=== PATIENT | female | born 1990 | race Caucasian/White ===

== ENCOUNTER 2019-12-07 13:47 | Inpatient (IN) ==
[2019-12-07 16:50] LABS: UR COCAINE QUAL PRESUMPTIVE POSITIVE (NONE DETECT); UR OPIATES QUAL PRESUMPTIVE POSITIVE (NONE DETECT); UR OXYCODONE QUAL PRESUMPTIVE POSITIVE (NONE DETECT)
[2019-12-07 16:51] LABS: UR AMPHETAMINES QUAL NONE DETECTED (NONE DETECT); UR BARBITUATES QUAL NONE DETECTED (NONE DETECT); UR BENZODIAZEPIN QUAL NONE DETECTED (NONE DETECT); UR CANNABINOIDS QUAL NONE DETECTED (NONE DETECT); UR METHADONE QUAL NONE DETECTED (NONE DETECT); UR METHAMPHETAMINE QUAL NONE DETECTED (NONE DETECT); UR PCP QUAL NONE DETECTED (NONE DETECT); UR PROPOXYPHENE QUAL NONE DETECTED (NONE DETECT); UR TCA QUAL NONE DETECTED (NONE DETECT)
[2019-12-07] MEDS ORDERED: SENOKOT PO PRN (18:00)
[2019-12-07] MEDS ORDERED: DULCOLAX PR PRN (18:00)
[2019-12-07] MEDS ORDERED: NICODERM PATCH TD PRN (18:00)
[2019-12-07] MEDS ORDERED: ATARAX PO PRN (18:00)
[2019-12-07] MEDS ORDERED: TUBERSOL ID ONE (18:00)
[2019-12-07] MEDS ORDERED: MAALOX PLUS LIQUID PO PRN (18:00)
[2019-12-07] MEDS ORDERED: LIBRIUM PO PRN (18:00)
[2019-12-07] MEDS ORDERED: D5W 1,000 ML IV PRN (18:00)
[2019-12-07] MEDS ORDERED: ZOFRAN IV PRN (18:00)
[2019-12-07] MEDS ORDERED: SINEMET 25/100 PO PRN (18:00)
[2019-12-07] MEDS ORDERED: IMODIUM PO PRN (18:00)
[2019-12-07] MEDS ORDERED: BENTYL PO PRN (18:00)
[2019-12-07] MEDS ORDERED: TYLENOL PO PRN (18:00)
[2019-12-07] MEDS ORDERED: PHENOBARBITAL IV PRN (18:00)
[2019-12-07] MEDS: ZOFRAN ODT PO PRN (18:27)
[2019-12-07] MEDS: LIBRIUM PO SCH ×2 (18:28→22:58)
[2019-12-07] MEDS ORDERED: PNEUMOVAX 23 IM ONE (18:30)
[2019-12-07 18:40] LABS: HEMATOCRIT 35.9 % (37.0-47.0); HEMOGLOBIN 11.7 g/dL (12.0-16.0); MCH 28.2 PG (27-31); MCHC 32.6 g/dL (33-37); MCV 86.5 FL (81-99); MPV 8.8 FL (7.4-10.4); RBC 4.15 XMIL (4.2-5.4); RDW 14.3 % (11.5-14.5); WBC 6.81 X1000 (4.8-10.8)
[2019-12-07 18:56] LABS: INR 1.1; PROTIME 14.8 Seconds (11.0-16.0)
[2019-12-07] MEDS ORDERED: FLU VACCINE IM ONE (19:06)
[2019-12-07 19:09] LABS: AMYLASE 68 U/L (20-200); LIPASE 35 U/L (13-60)
[2019-12-07 19:12] LABS: AGAP 13; ALBUMIN 4.2 g/dL (3.5-5.0); ALKALINE PHOSPHATASE 57 U/L (32-104); BUN 7 mg/dL (8-22); CALCIUM 9.3 mg/dL (8.8-10.2); CHLORIDE 100 mmol/L (98-107); COSMO 279; CREATININE 0.4 mg/dL (0.5-0.9); ESTIMATED GFR > 60; GLUCOSE 125 mg/dL (70-104); GOT 15 U/L (10-30); GPT 11 U/L (10-36); POTASSIUM 3.2 mmol/L (3.5-5.1); SODIUM 140 mmol/L (136-145); TCO2 27 mmol/L (25-35); TOTAL PROTEIN 6.5 g/dL (6.3-8.3)
[2019-12-07] MEDS: SUBOXONE 8 MG/2 MG FILM SL SCH (22:39)
[2019-12-07] MEDS: ROBAXIN PO PRN (22:57)
[2019-12-07] MEDS: SEROQUEL PO PRN (22:57)
[2019-12-08] MEDS: LIBRIUM PO SCH ×4 (01:27→18:14)
[2019-12-08] MEDS: PROTONIX PO SCH (08:45)
[2019-12-08] MEDS: FOLIC ACID PO SCH ×2 (08:46→11:44)
[2019-12-08] MEDS: SUBOXONE 8 MG/2 MG FILM SL SCH ×3 (08:46→23:08)
[2019-12-08] MEDS: THERA M PLUS PO SCH ×2 (08:47→11:45)
[2019-12-08] MEDS: VITAMIN B-1 PO SCH ×2 (08:47→11:44)
[2019-12-08] MEDS ORDERED: M.V.I.-12 10 ML, FOLIC ACID 1 MG, MAGNESIUM SULFATE 1 GM, THIAMINE 100 MG in NS 1,000 ML IV ONE (09:00)
[2019-12-08] MEDS: ZOFRAN ODT PO PRN (11:45)
--- NOTE | 2019-12-08 23:35 | PROGRESS NOTE ---
DATE: 12/08/2019 SUBJECTIVE: Patient currently is sleeping, easily awakened. PHYSICAL EXAMINATION: Vital Signs: Reviewed. She is afebrile. Blood pressure is stable. Cardiovascular: Regular rate. Chest: Clear. Abdomen: Soft. ASSESSMENT: 1. Opiate abuse withdrawal and stabilization. PLAN: We are going to continue the patient in the hospital. She does have a positive beta HCG, although her qualitative is very low, as to be expected. Given that she has recently had a D and C, she certainly is not . We are going to continue to follow. Further orders as needed. cc: Ozzy Nguyen MD MTDD
[2019-12-09] MEDS: LIBRIUM PO SCH ×3 (02:29→18:48)
[2019-12-09] MEDS: PROTONIX PO SCH (06:04)
[2019-12-09] MEDS ORDERED: SOLU-MEDROL IV ONE (08:42)
[2019-12-09] MEDS ORDERED: KLOR-CON PO ONE (08:42)
[2019-12-09] MEDS: VITAMIN B-1 PO SCH (08:44)
[2019-12-09] MEDS: FOLIC ACID PO SCH (08:44)
[2019-12-09] MEDS: THERA M PLUS PO SCH (08:44)
[2019-12-09] MEDS ORDERED: SUBOXONE 8 MG/2 MG FILM SL SCH (09:00)
[2019-12-09] MEDS: MOTRIN PO PRN ×2 (11:05→18:48)
[2019-12-09] MEDS: ROBAXIN PO PRN ×2 (11:05→18:48)
[2019-12-09] MEDS: ZOFRAN ODT PO PRN (18:00)
--- NOTE | 2019-12-09 21:31 | PROGRESS NOTE ---
DATE: 12/07/2019 SUBJECTIVE: She has no new complaints, states she is still having severe knee pain from her surgery in July. OBJECTIVE: Vital Signs: Reviewed. General: She is awake and alert. She is in no distress. HEENT: Normocephalic. Neck: Supple. Cardiovascular: Regular rate. Chest: Clear. Abdomen: Soft. ASSESSMENT: 1. Nausea and vomiting. 2. Abdominal pain. 3. Left knee pain. 4. Polysubstance use and abuse. PLAN: We are going to continue to wean Librium, wean Suboxone. Continue to attempt counseling. Further orders as needed cc: Ozzy Nguyen MD MTDD
[2019-12-10] MEDS: SEROQUEL PO PRN ×2 (00:29→23:58)
[2019-12-10] MEDS: ROBAXIN PO PRN (00:29)
[2019-12-10] MEDS: DESYREL PO PRN ×2 (00:29→23:58)
[2019-12-10] MEDS: LIBRIUM PO SCH ×4 (02:20→19:26)
[2019-12-10] MEDS: PROTONIX PO SCH (06:12)
[2019-12-10] MEDS ORDERED: SUBOXONE 2 MG/0.5 MG FILM SL ONE (08:30)
[2019-12-10] MEDS: THERA M PLUS PO SCH (09:06)
[2019-12-10] MEDS: MOTRIN PO PRN ×2 (09:06→21:32)
[2019-12-10] MEDS: VITAMIN B-1 PO SCH (09:07)
[2019-12-10] MEDS: FOLIC ACID PO SCH (09:07)
[2019-12-10] MEDS ORDERED: ATARAX PO PRN (15:20)
[2019-12-10] MEDS: ZOFRAN ODT PO PRN (23:51)
--- NOTE | 2019-12-11 02:22 | PROGRESS NOTE ---
DATE: 12/10/2019 SUBJECTIVE: Patient notes that she feels terrible. She is still having chills and flashes. States the Suboxone did help. She is unsure if she wants to completely wean off Suboxone or to stay on it at [facility]. PHYSICAL EXAMINATION: Vital signs: Reviewed. General: She is awake, alert. She is in no distress. She is agitated, crying on exam, difficult to get to concentrate and stay on task. She is very animated when discussing that the patient a few doors down was agitated, angry and yelling. She is witnessed to walk from her room 8 rooms down to the nursing desk to have a multitude of complaints. HEENT: Normocephalic. Neck: Supple. Cardiovascular: Regular rate. Chest: Clear. Abdomen: Soft. Extremities: Moves all extremities. ASSESSMENT: 1. Nausea and vomiting, resolved. 2. Chronic anxiety, depression. 3. Bipolar. 4. Asthma. 5. Reconstructive surgery left knee July the . PLAN: We are going to continue to attempt to wean her Suboxone. At one point, patient was angry that she was started on something she had to wean off. However, did discuss with her that yesterday's exam she was screaming, yelling, crying and was unable to actually answer any questions secondary to her knee pain which of course seems to be resolved at this point as she is able to ambulate the smith without any difficulties or any complaints of knee pain. Hopefully, we can continue to wean her Librium taper and we will follow. cc: Ozzy Nguyen MD [facility]
[2019-12-11] MEDS: PROTONIX PO SCH (06:23)
[2019-12-11] MEDS: MOTRIN PO PRN (06:27)
[2019-12-11 08:00] VITALS: BP 118/73
[2019-12-11] MEDS ORDERED: LIBRIUM PO SCH (09:00)
[2019-12-11] MEDS: VITAMIN B-1 PO SCH (09:24)
[2019-12-11] MEDS: THERA M PLUS PO SCH (09:24)
[2019-12-11] MEDS: FOLIC ACID PO SCH (09:24)
--- NOTE | 2019-12-12 06:52 | HISTORY AND PHYSICAL ---
CHIEF COMPLAINT: Nausea, vomiting. HISTORY OF PRESENT ILLNESS: Patient is a 29-year-old female [facility] secondary to nausea, vomiting, abdominal pain, myalgias, paresthesias. Notes that she has been using abusing opiates. States this started heavily after the knee surgery. She also just underwent a D and C in October due to a miscarriage. SOCIAL HISTORY: Patient is unemployed. She is single, lives at home in [place]. PAST MEDICAL HISTORY: Asthma, reconstructive surgery in her knee July 30, D and C November 06 due to miscarriage. She has bipolar, chronic anxiety depression, history of kidney stones, hypertension, asthma mainly as a child. Had gestational diabetes with previous 2 children. MEDICATIONS: Ibuprofen. ALLERGIES: Morphine. REVIEW OF SYSTEMS: GI diffuse abdominal pain, no diarrhea, nausea, vomiting, nasal congestion, watery eyes, runny nose, is anxious. Had an intentional overdose in 2009 . Denies any chest pain or palpitation. Denies any fevers, chills, cough, or congestion. Denies dysuria, frequency, or hesitancy. Denies constipation, melena, or hematochezia. Does not check her weight on any regular basis. SUBSTANCE ABUSE HISTORY: The patient has not been in treatment in the past. Currently she is having relationship, financial work problems. DHR has her other 3 children in the custody of her sister. Started drinking alcohol at age 25. Currently drinks occasionally usually only when she is high. Started marijuana at 14; states she only smokes when she is on her cycle, uses it for the menstrual cramps. Started cocaine at 22; currently is using 30 dollars every 3 to 4 days. Started opiates at 16; currently she is taking at least 5 to 6 Percocet 10s a day. Started nicotine at age 19. FAMILY HISTORY: Several family members also smoke marijuana and use illicit substances. PHYSICAL: Vital signs reviewed, stable. Patient is awake, alert. She is in no current respiratory distress. HEENT: Normocephalic, atraumatic. Neck: Supple. CV: Regular rate. Chest: Clear. Abdomen: Soft, nondistended, nontender. Extremities: Moves all extremities. Neurologic: No focal changes. Skin: Warm, dry. No rashes. ASSESSMENT: 1. Nausea, vomiting. 2. Abdominal pain. 3. Myalgias, paresthesias, paroxysmal sweating. 4. Tobacco abuse. 5. Bipolar. 6. Hypertension. 7. Asthma. 8. Opiate abuse withdrawal and stabilization. PLAN: Will continue patient in the hospital. Continue her on Suboxone and Librium. Will attempt to wean off both. Will continue counseling. Further orders as needed. cc: Ozzy Nguyen MD MTDD
--- NOTE | 2019-12-12 07:07 | DISCHARGE SUMMARY ---
ADMISSION DATE: 12/07/2019 DISCHARGE DATE: 12/11/2019 Discharge diagnosis 1 abdominal pain 2 Knee pain 3 nausea vomiting 4 bipolar 5 chronic anxiety 6 opiate abuse. Consultations None Hospital Course. We placed her on Suboxone and Librium. We tried to wean off Suboxone, but each time we attempted this, she started complaining of more pain. She would cry and scream out when she would move her left knee. However, on Suboxone, she was able to ambulate down the smith enough to complain about other things and to video the staff without their knowledge. The patient continued to have emotional issues with frequent episodes of crying and frequent episodes of screaming and yelling at the staff. Regardless, from an opiate withdrawal standpoint, she continued to improve and, therefore, she will be discharged home. DISPOSITION: The patient will be discharged on 4 mg of Suboxone twice daily. She will follow up outpatient with treatment facility of choice. Discussed that she needs outpatient life counseling as well as drug counseling. cc: Ozzy Nguyen MD MTDD
== END 2019-12-11 12:09 | disposition home or self-care (01) | DRG 897 ==
LOC: P.DIRADM 14:37 → P.MEDSURG 15:04
PROVIDERS: ADMIT Family Medicine; ATTEND Family Medicine